=== PATIENT | female | born 1965 | race Caucasian/White ===

== ENCOUNTER 2020-05-20 04:22 | Emergency (ER) | payer OTHER ==
[2020-05-20 04:36] VITALS: BP 153/86; PULSE 79
[2020-05-20] MEDS: predniSONE 20 MG Tab PO ONE (05:10)
--- NOTE | 2020-05-20 05:18 | EDM.PDOC ---
ED HPI GENERAL MEDICAL PROBLEM - General Chief Complaint: Allergic Reaction Stated Complaint: allergic reaction Time Seen by Provider: 05/20/20 04:50 Source of Information: Reports: Patient History Limitations: Reports: No Limitations - History of Present Illness INITIAL COMMENTS - FREE TEXT/NARRATIVE: Patient presents with itchy rash on arms and anterior neck and upper chest that started around 1900 last evening. This is something that she gets somewhat regularly once or twice a year and thinks it may be sun related but not sure. She has consistently found that Benadryl and Zyrtec don't help but Claritin may a little. What has always helped is a 5-7 day course of prednisone. In February she had 7 days of 40 mg for similar symptoms that worked well. She has never had an anaphylactic reaction, just very itchy rash. 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: , Other (See Below) Other MINER ASSISTANT History: breast reduction at age 20 Endocrine/Metabolic History: Reports: Obesity/BMI 30+, Vitamin D Deficiency - Infectious Disease History Infectious Disease History: Reports: C-Difficile - Past Surgical History GI Surgical History: Reports: Cholecystectomy Social & Family History - Family History Family Medical History: Noncontributory - Tobacco Use Smoking Status *Q: Never Smoker - Caffeine Use Caffeine Use: Reports: None - Recreational Drug Use Recreational Drug Use: No - Living Situation & Occupation Living situation: Reports: Occupation: Employed ED ROS ALLERGIC REACTION - Review of Systems Review Of Systems: Comprehensive ROS is negative, except as noted in HPI. ED EXAM GENERAL NO PERIP PULSE - Physical Exam Exam: See Below Exam Limited By: No Limitations General Appearance: Alert, WD/WN, No Apparent Distress Eye Exam: Bilateral Eye: EOMI, Normal Inspection, PERRL Ears: Normal External Exam, Hearing Grossly Normal Nose: Normal Inspection, No Blood Throat/Mouth: Normal Inspection, Normal Lips, No Airway Compromise Head: Atraumatic, Normocephalic Neck: Normal Inspection, Full Range of Motion Respiratory/Chest: No Respiratory Distress, Lungs Clear, Normal Breath Sounds, No Accessory Muscle Use Cardiovascular: Regular Rate, Rhythm, No Murmur Back Exam: Normal Inspection, Full Range of Motion. No: CVA Tenderness (L), CVA Tenderness (R) Extremities: Normal Inspection, Normal Range of Motion Neurological: Alert, Oriented, Normal Cognition, No Motor/Sensory Deficits Psychiatric: Normal Affect, Normal Mood Skin Exam: Warm, Dry, Intact, Normal Color, Rash (macular rash on anterior neck and upper chest and both arms) Course - Vital Signs Last Recorded V/S: Last Vital Signs Temp 95.7 F L 05/20/20 04:22 Pulse 79 05/20/20 04:22 Resp 16 05/20/20 04:22 BP 153/86 H 05/20/20 04:22 Pulse Ox 97 05/20/20 04:22 - Orders/Labs/Meds Meds: Medications Discontinued Medications Generic Name Dose Route Start Last Admin Trade Name Billq PRN Reason Stop Dose Admin Prednisone 40 mg 05/20/20 05:04 Prednisone PO 05/20/20 05:05 ONETIME ONE - Re-Assessments/Exams Free Text/Narrative Re-Assessment/Exam: 05/20/20 05:20 Discussed findings and treatment plan with patient. Prednisone 40 mg given now and Rx for 6 more days. Patient discharged to home in stable condition. Departure - Departure Time of Disposition: 05:06 Disposition: Home, Self-Care 01 Condition: Good Clinical Impression: Allergic rash present on examination, Pruritic rash - Discharge Information Additional Instructions: Drink 8 cups of water daily. Take the prednisone daily as instructed. Take your Claritin as directed also. Follow up with your PCP if persisting or to discuss having prednisone course to have available to use when needed. If worsening go to PCP or ER [facility]. Sepsis Event Note (ED) - Evaluation Sepsis Screening Result: No Definite Risk - Focused Exam Vital Signs: Vital Signs Temp Pulse Resp BP Pulse Ox 05/20/20 04:22 95.7 F L 79 16 153/86 H 97
== END 2020-05-20 05:20 | disposition home or self-care (01) ==
LOC: KA.ED 04:22
DX: R21 Rash and other nonspecific skin eruption (principal); E66.9 Obesity, unspecified; Z68.30 Body mass index [BMI] 30.0-30.9, adult; Z88.1 Allergy status to other antibiotic agents; Z88.0 Allergy status to penicillin; Z88.2 Allergy status to sulfonamides
CPT/HCPCS: 99283; J7512